=== PATIENT | female | born 1950 | race Caucasian/White ===

== ENCOUNTER 2023-02-23 10:54 | Emergency (ER) | payer MEDICARE, SELFPAY ==
[2023-02-23 11:01] VITALS: BP 158/83; PULSE 84; RESP 20; TEMP 36.6; O2SAT 98; BMI 28.3
--- NOTE | 2023-02-23 11:21 | ED_ITS ---
HPI - General Adult General Time Seen by Provider: 11:21 Date Seen: 02/23/23 Chief complaint: Rib Pain Stated complaint: Fall/pain on left side/hit head/ribs Time Seen by Provider: 02/23/23 11:05 Source: patient and RN notes reviewed Mode of arrival: ambulatory Limitations: no limitations History of Present Illness HPI narrative: This 73-year-old female is ambulatory into the ED of her own accord after a fall. She is primarily complaining of left rib pain. She was going out of her apartment complex and 1 of the concrete blocks as sunken down a couple inches pe r report she states she has been aware of this but for got. She caught her left foot on it and went down on her left side. She did hit the outside of her head, the corner of her glasses on the left side broke a bit. She is feeling dizzy and unsteady since the fall but denied any loss of consciousness, no headache. Her left anterior to lateral chest wall is hurting. She did take some Tylenol t his morning. She is not short of breath. She admits she is breathing more shallow because it hurts to breathe. She got a superficial abrasion on her left knee but states she is able to ambulate, no difficulty with ambulation, she states she has no concern for her knee. 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 She has no new neck or back pain. She does admit she has underlying arthritis everywhere in has a lot of aches and pains but outside of the left chest wall, she is having no new significant pain. Her face is not even hurting where she maybe hit her head. She just fell this morning. Related Data Home Medications Medication Instructions Recorded Confirmed albuterol sulfate 90 mcg/actuation 2 puff inhalation Q4H PRN wheezing 02/23/23 02/23/23 aerosol inhaler atorvastatin 40 mg tablet 40 mg PO DAILY 02/23/23 02/23/23 budesonide-formoterol HFA 80 2 puff inhalation BID 02/23/23 02/23/23 mcg-4.5 mcg/actuation aerosol inhaler (Symbicort) ipratropium bromide 21 mcg (0.03 2 spray intranasal BID 02/23/23 02/23/23 %) nasal spray levothyroxine 50 mcg tablet 50 mcg PO DAILY 02/23/23 02/23/23 losartan 50 mg-hydrochlorothiazide 1 tab PO DAILY 02/23/23 02/23/23 12.5 mg tablet montelukast 10 mg tablet 10 mg PO DAILY 02/23/23 02/23/23 paroxetine HCl 20 mg tablet 20 mg PO DAILY 02/23/23 02/23/23 trazodone 50 mg tablet 100 mg PO QPM PRN 02/23/23 02/23/23 valacyclovir 1 gram tablet 1,000 mg PO 3XD 02/23/23 02/23/23 Allergies Allergy/AdvReac Type Severity Reaction Status Date / Time Penicillins Allergy Unknown Rash Verified 02/23/23 11:07 azithromycin AdvReac Unknown Gastrointestinal Verified 02/23/23 11:07 Upset Review of Systems Status of ROS: Reports: 6 or more systems reviewed and unremarkable except as noted in History and below PFSH PFS Social History Smoking Status: Never smoker How often do you have a drink containing alcohol: never AUDIT-C Alcohol total score: 0 Non-prescribed substance use: denies use Exam Const: Vital Signs, click to edit/add: Vital Signs - 24 hr 02/23/23 11:01 Temperature 97.9 F Pulse Rate [Pulse Oximeter] 84 Respiratory Rate 20 Blood Pressure [Ri ght Upper Arm] 158/83 H Pulse Oximetry 98 Oxygen Delivery Me thod Room Air Documenting provider has reviewed patient's vital signs: yes Common normals: no apparent distress, oriented x3, no limitations, healthy appearing and alert General appearance: cooperative, well kempt and well developed Other: Hanging onto her lower left chest wall. HENMT: Common normals: normocephalic, head/scalp atraumatic, hearing grossly normal bilaterally, external ears normal, TM's normal bilaterally, nasal mucous membranes and turbinates normal, moist oral mucous membranes, oropharynx normal (No pain with opening and closing jaw) and dentition normal (Feels that her teeth occlude normally) Head and scalp: normocephalic and atraumatic Nose: nasal mucous membranes and turbinates normal External ear: external ears normal Tympanic membrane: TM's normal bilaterally Eye: Common normals: PERRL, EOMs intact bilaterally, conjunctivae normal and no scleral icterus Conjunctiva: conjunctiva(e) normal Pupil: PERRL Neck & C-Spine: Common normals: full ROM (No midline tenderness), no lymphadenopathy and supple Chest: Common normals: inspection of chest normal Other: Has pain along the anterolateral lower chest wall, no overlying crepitus, no visible ecchymosis. Resp: Common normals: normal respiratory effort, no retractions, no use of accessory muscles and clear to auscultation bilaterally Auscultation: clear to auscultation bilaterally Cardio: Common normals: regular rate, regular rhythm, S1 normal heart sound, S2 normal heart sound, no gallops, no clicks and no murmurs Rate: regular rate Rhythm: regular rhythm Heart sounds: S1 normal and S2 normal GI: Common normals: Normal to inspection, nondistended, normoactive bowel sounds present, soft to palpation, non-tender, no hepatosplenomegaly and no masses Palpation: soft and no hepatosplenomegaly Back & Pelvis: Common normals: thoracic and lumbar spine normal to inspection and no thoracic nor lumbar tenderness Extremity: Other: Has very superficial pinkish abraded area lateral to the left patella. Has full range of motion of her knee, no joint line tenderness outside of the area of the abrasion. Has not even caused any bleeding, again is extremely superficial. States no significant pain with ambulation. Neuro: Common normals: oriented x3 Sensorium/orientation: alert Psych: Appearance: well kempt Course Course Hospital Course: Patient obviously may have left rib fractures. Rule out pneumothorax with imaging with chest x-ray and left rib views. Given that she is feeling dizzy, do feel that we should proceed with a head CT. She denies any anticoagulants but there certainly are tissue changes with aging that I feel put her at increased risk. She is hemodynamically stable. No hypoxia. Reevaluation(s) Reevaluation #1: Reviewed with patient that the radiologist is not seeing any fractures on her chest x-ray. Head CT without acute pathology. We did discuss that there still is a possibility of underlying rib fractures that we are just not seen, sometimes we do not see rib fractures until they are actually healing with callus formation. This would not change our management at all. We discussed splinting technique. Time: 12:23 Vital Signs Vital signs: Initial Vital Signs Temperature 97.9 F 02/23/23 11:01 Temperature Source Temporal Artery Scan 02/23/23 11:01 Pulse Rate 84 02/23/23 11:01 Pulse Rhythm Regular 03/28/23 11:01 Respiratory Rate 20 02/23/23 11:01 Blood Pressure 158/83 H 02/23/23 11:01 Blood Pressure Mean 108 02/23/23 11:01 Blood Pressure Position Sitting 02/23/23 11:01 Pulse Oximetry 98 02/23/23 11:01 Oxygen Delivery Method Room Air 02/23/23 11:01 Vital Signs Temperature 97.9 F 02/23/23 11:01 Pulse Rate 84 02/23/23 11:01 Respiratory Rate 20 02/23/23 11:01 Blood Pressure 158/83 H 02/23/23 11:01 Pulse Oximetry 98 02/23/23 11:01 Oxygen Delivery Method Room Air 02/23/23 11:01 Temperature 97.9 F 02/23/23 11:01 Pulse Rate 84 02/23/23 11:01 Respiratory Rate 20 02/23/23 11:01 Blood Pressure 158/83 H 02/23/23 11:01 Pulse Oximetry 98 02/23/23 11:01 Oxygen Delivery Method Room Air 02/23/23 11:01 Medical Decision Making Imaging Data CT scan - head: Attestation: I have reviewed the pertinent imaging results. Radiologist's impression: Patient: SANJIV DUMAS Facility:?[facility] Patient ID:?[id number] Site Patient ID:?[id number]. Site :?[id number] Study:?CT Head W/O-02/23/2023 11:51:09 AM Ordering Physician:Pricila Flower Final Report: Indication: Fall injury Technique: Noncontrast head CT Comparison: No comparison Findings: Axial noncontrast images through the brain parenchyma demonstrates generalized parenchymal volume loss. No acute intracranial hemorrhage or mass. No midline shift. No abnormal extra-axial air fluid collections are seen. Prior FESS changes. Skull and scalp are unremarkable. Impression: No acute intracranial hemorrhage or mass. Please note that all CT scans at this facility use dose modulation, iterative reconstruction, and/or weight-based dosing when appropriate to reduce radiation dose to as low as reasonably achievable. Dictated by Mary Kate Justin MD @ 02/23/2023 11:58:02 AM (Electronic Signature) XR chest with left rib views: Attestation: I have reviewed the pertinent imaging results. My impression: I do not appreciate any rib fractures and my preliminary review, no pneumothorax. Radiologist's impression: Patient: SANJIV DUMAS Facility:?[facility] Patient ID:?[id number] Site Patient ID:?[id number]. Site :?[id number] Study:?XRay Chest LT RIBS W/ PA CXR MIN 3 VW-02/23/2023 11:49:35 AM Ordering Physician:?rBianne Flower Final Report: INDICATION: Fall TECHNIQUE: PA chest and left ribs. FINDINGS: Normal cardiac mediastinal silhouette. Basilar atelectasis is. No rib fractures seen nodes fusion. IMPRESSION: Negative chest and left ribs. Dictated by Mary Kate Justin MD @ 02/23/2023 11:58:59 AM (Electronic Signature) Critical Care Time Critical Care Time Critical Care Time: No Discharge Plan Discharge Clinical Impression: Chest wall contusion, Fall Patient Disposition: Home, Self-Care Condition: Stable Instructions: Fall Prevention for Older Adults (ED), Rib Contusion (ED) Additional Instructions: Use splinting technique of the left chest wall with position changes, cough or sneezing. Use Tylenol 1000 mg 3 times a day for pain management. Can use some ice to your chest wall and see if that helps. If you develop cough with fever, increased difficulty breathing or shortness of breath, do need to be re- evaluated. Activity Level: Activity as Tolerated Prescriptions: No Action atorvastatin 40 mg tablet 40 mg PO DAILY trazodone 50 mg tablet 100 mg PO QPM PRN valacyclovir 1 gram tablet 1,000 mg PO 3XD levothyroxine 50 mcg tablet 50 mcg PO DAILY paroxetine HCl 20 mg tablet 20 mg PO DAILY montelukast 10 mg tablet 10 mg PO DAILY albuterol sulfate 90 mcg/actuation HFA aerosol inhaler 2 puff INHALATION Q4H PRN (Reason: wheezing) losartan-hydrochlorothiazide 50-12.5 mg tablet 1 tab PO DAILY ipratropium bromide 21 mcg (0.03 %) spray,non-aerosol 2 spray INTRANASAL BID budesonide-formoterol [Symbicort] 80-4.5 mcg/actuation HFA aerosol inhaler 2 puff INHALATION BID Stand Alone Forms: My[employer] Info Instructions
--- NOTE | 2023-02-23 11:26 | CRLHL7_ITS ---
For Patients: As a result of the Cures Act, medical imaging exams and procedure reports are released immediately into your electronic medical record. You may view this report before your referring provider. If you have questions, please contact your health care provider. INDICATION: Fall TECHNIQUE: PA chest and left ribs. FINDINGS: Normal cardiac mediastinal silhouette. Basilar atelectasis is. No rib fractures seen nodes fusion. IMPRESSION: Negative chest and left ribs. Dictated by Mary Kate Justin MD @ 02/23/2023 11:58:59 AM (Electronically Signed)
--- NOTE | 2023-02-23 11:26 | CRLHL7_ITS ---
For Patients: As a result of the Cures Act, medical imaging exams and procedure reports are released immediately into your electronic medical record. You may view this report before your referring provider. If you have questions, please contact your health care provider. Indication: Fall injury Technique: Noncontrast head CT Comparison: No comparison Findings: Axial noncontrast images through the brain parenchyma demonstrates generalized parenchymal volume loss. No acute intracranial hemorrhage or mass. No midline shift. No abnormal extra-axial air fluid collections are seen. Prior FESS changes. Skull and scalp are unremarkable. Impression: No acute intracranial hemorrhage or mass. Please note that all CT scans at this facility use dose modulation, iterative reconstruction, and/or weight-based dosing when appropriate to reduce radiation dose to as low as reasonably achievable. Dictated by Mary Kate Justin MD @ 02/23/2023 11:58:02 AM (Electronically Signed)
[2023-02-23 12:34] VITALS: BP 158/83; PULSE 84; RESP 20; TEMP 36.6
== END 2023-02-23 12:34 | disposition home or self-care (01) ==
PROVIDERS: Emergency Provider Family Medicine; PCP Physician Assistant
DX: S20.212A Contusion of left front wall of thorax, initial encounter (principal); W19.XXXA Unspecified fall, initial encounter
CPT/HCPCS: 70450; 71101; 99283; 99284